=== PATIENT | female | born 1970 | race Caucasian/White ===

== ENCOUNTER 2016-11-10 06:24 | Emergency (ER) | payer BC ==
[~2016-11-10] VITALS: Ht 157.5 cm; Wt 53.2 kg
[~2016-11-10 06:24] MED LIST: ACETTAB3 OR; ADDERALL5 MG PO; AMOXICILLIN/CL875 MG PO; AUGMENTIN875TAB PO; AZITHROMYCIN250 MG PO; CEPHALEXIN500 MG PO; CLONAZEP ODT1 MG; DIFLUCAN150 MG PO; FLONASE NASAL50 MCG; FLONASE SPRAY50 MCG; IMITREX50 M1 PO; LEVOTHYROXIN100 MC1 PO; LEVOTHYROXIN100 MCG PO; MEDDOSEPAK OR; MEDDOSEPAK PO; NAPROSYN500 MG OR; VALACYCLOVIR H500 MG PO; VALACYCLOVIR1 GM OR; ZOLOFT100 MG PO; [UNRECOGNIZED DRUG - OTHER] EX
[2016-11-10] MEDS ORDERED: TESSALON PER100 MG PO (07:03)
[2016-11-10] MEDS ORDERED: ZITHROMAX250 MG PO (07:03)
[2016-11-10] MEDS ORDERED: PREDNISONE50 MG PO (07:03)
[2016-11-10 07:07] VITALS: BP 102/75
== END 2016-11-10 07:11 | disposition home or self-care (01) | DRG 203 ==
LOC: ED 06:24
DX: J20.9 Acute bronchitis, unspecified (principal); F32.9 Major depressive disorder, single episode, unspecified; F41.9 Anxiety disorder, unspecified

== ENCOUNTER 2017-05-07 08:44 | Emergency (ER) | payer BC ==
[~2017-05-07] VITALS: Ht 157.5 cm; Wt 52.0 kg
[~2017-05-07 08:44] MED LIST changes: +PREDNISONE50 MG PO; +TESSALON PER100 MG PO; +ZITHROMAX250 MG PO
[2017-05-07 10:27] LABS: ALBUMIN 4.7 g/dL (3.2-5.0); ALKALINE PHOSPHATASE 68 u/l (38-126); ANION GAP 16 (6-22 (CALC)); BILIRUBIN, TOTAL 0.5 mg/dL (0.0-1.4); BUN 10 mg/dL (7-17); BUN/CREATININE RATIO 14 (12-20 (CALC)); CARBON DIOXIDE 26 mmol/l (22-30); CHLORIDE 103 mmol/l (95-108); CREATININE 0.7 mg/dL (0.5-1.0); GFR > 60 ML/MIN (>=60 (CALC)); GFR FOR AFR.AMER. > 60 ML/MIN (>=60 (CALC)); POTASSIUM 4.6 mmol/l (3.5-5.1); SGOT/AST 25 u/l (14-36); SGPT/ALT 32 u/l (9-52); SODIUM 140 mmol/l (137-146); TOTAL PROTEIN 7.5 g/dL (6.3-8.2)
[2017-05-07 10:28] LABS: HEMATOCRIT 45.9 % (37.0-47.0); HEMOGLOBIN 14.6 g/dl (12.0-16.0); IMMATURE GRANULOCYTES 0.2 % (0.0-1.0); MEAN CELL VOLUME 100.9 fL CALC (80.0-100.0); MEAN CORPUSCULAR HGB 32.1 pG CALC (26.0-32.0); MEAN CORPUSCULAR HGB CONC 31.8 g/L CALC (32.0-36.0); NEUT# 6.88 thou/uL (2.00-7.15); RED BLOOD COUNT 4.55 mill/uL (4.20-5.60); RED CELL DISTRI WIDTH 13.6 % (11.5-15.5)
[2017-05-07 10:34] LABS: URINE BILIRUBIN - DIPSTICK NEGATIVE (NEGATIVE); URINE BLOOD DIPSTICK LARGE (NEGATIVE); URINE COLOR YELLOW; URINE GLUCOSE - DIPSTICK NEGATIVE (NEGATIVE); URINE KETONE NEGATIVE (NEGATIVE); URINE NITRITE - DIPSTICK NEGATIVE (Negative); URINE PROTEIN - DIPSTICK 30 mg/dL (NEG-TRACE); URINE UROBILINOGEN - DIPSTICK 0.2 E.U./dL (0.2)
[2017-05-07 10:49] LABS: URINE CLARITY CLOUDY; URINE LEUK ESTERASE LARGE (NEGATIVE)
[2017-05-07 10:50] LABS: URINE BACTERIA MODERATE hpf; URINE EPITHELIAL CELLS MODERATE EPI/hpf (0-FEW); URINE RBC 25-50 RBC/hpf (0-5); URINE WBC 20-50 WBC/hpf (0-5)
[2017-05-07] MEDS ORDERED: CEPHALEXIN500 M1 PO (11:07)
[2017-05-07] MEDS ORDERED: TAMSULOSIN0.4 MG PO (11:07)
[2017-05-07 11:14] VITALS: BP 92/60
== END 2017-05-07 11:30 | disposition home or self-care (01) | DRG 690 ==
LOC: ED 08:44
PROVIDERS: Family Medicine
DX: N39.0 Urinary tract infection, site not specified (principal); R31.9 Hematuria, unspecified; E06.3 Autoimmune thyroiditis; R10.32 Left lower quadrant pain

== ENCOUNTER 2017-06-04 10:39 | Emergency (ER) | payer BC ==
[~2017-06-04] VITALS: Ht 157.5 cm; Wt 55.0 kg
[~2017-06-04 10:39] MED LIST changes: +CEPHALEXIN500 M1 PO; +TAMSULOSIN0.4 MG PO
[2017-06-04 12:02] LABS: URINE BILIRUBIN - DIPSTICK NEGATIVE (NEGATIVE); URINE BLOOD DIPSTICK NEGATIVE (NEGATIVE); URINE CLARITY CLEAR; URINE COLOR YELLOW; URINE GLUCOSE - DIPSTICK NEGATIVE (NEGATIVE); URINE KETONE NEGATIVE (NEGATIVE); URINE LEUK ESTERASE NEGATIVE (NEGATIVE); URINE NITRITE - DIPSTICK NEGATIVE (Negative); URINE PROTEIN - DIPSTICK NEGATIVE (NEG-TRACE); URINE SPECIFIC GRAVITY <=1.005; URINE UROBILINOGEN - DIPSTICK 0.2 E.U./dL (0.2)
[2017-06-04 13:19] LABS: HEMOGLOBIN 13.2 g/dl (12.0-16.0); IMMATURE GRANULOCYTES 0.2 % (0.0-1.0); MEAN CELL VOLUME 96.1 fL CALC (80.0-100.0); MEAN CORPUSCULAR HGB 32.2 pG CALC (26.0-32.0); MEAN CORPUSCULAR HGB CONC 33.5 g/L CALC (32.0-36.0); NEUT# 2.09 thou/uL (2.00-7.15); RED BLOOD COUNT 4.1 mill/uL (4.20-5.60); RED CELL DISTRI WIDTH 13.4 % (11.5-15.5)
[2017-06-04 13:37] LABS: ANION GAP 15 (6-22 (CALC)); BUN 15 mg/dL (7-17); BUN/CREATININE RATIO 20 (12-20 (CALC)); CARBON DIOXIDE 26 mmol/l (22-30); CHLORIDE 105 mmol/l (95-108); CREATININE 0.7 mg/dL (0.5-1.0); GFR > 60 ML/MIN (>=60 (CALC)); GFR FOR AFR.AMER. > 60 ML/MIN (>=60 (CALC)); POTASSIUM 4.6 mmol/l (3.5-5.1); SODIUM 142 mmol/l (137-146)
[2017-06-04 13:38] LABS: HEMATOCRIT 39.4 % (37.0-47.0)
[2017-06-04 15:24] VITALS: BP 103/66
== END 2017-06-04 15:24 | disposition home or self-care (01) | DRG 392 ==
LOC: ED 10:39
PROVIDERS: Family Medicine
DX: R10.2 Pelvic and perineal pain (principal); E03.9 Hypothyroidism, unspecified; F41.9 Anxiety disorder, unspecified
CPT/HCPCS: Q9967

== ENCOUNTER 2017-10-24 11:06 | Emergency (ER) | payer BC ==
[~2017-10-24] VITALS: Ht 157.5 cm; Wt 58.0 kg
[~2017-10-24 11:06] MED LIST changes: -CLONAZEP ODT1 MG; +CLONAZEP ODT1 MG PO
[2017-10-24] MEDS ORDERED: LEVAQUIN750 MG PO (11:32)
[2017-10-24] MEDS ORDERED: IMITREX25 MG PO (11:32)
[2017-10-24] MEDS ORDERED: ZOFRAN4 MG/TAB PO (11:33)
[2017-10-24] MEDS ORDERED: FLONASE AL50 MCG/ACT (12:05)
[2017-10-24 12:31] VITALS: BP 116/70
[2017-10-24] MEDS ORDERED: DIFLUCAN150 MG PO (12:38)
== END 2017-10-24 12:35 | disposition home or self-care (01) | DRG 103 ==
LOC: ED 11:06
DX: R51 Headache (principal); J01.10 Acute frontal sinusitis, unspecified; R09.81 Nasal congestion

== ENCOUNTER 2017-12-13 08:50 | Emergency (ER) | payer BC ==
[~2017-12-13] VITALS: Ht 157.5 cm; Wt 54.5 kg
[~2017-12-13 08:50] MED LIST changes: +FLONASE AL50 MCG/ACT; +IMITREX25 MG PO; +LEVAQUIN750 MG PO; +ZOFRAN4 MG/TAB PO
[2017-12-13 09:30] LABS: INFLUENZA A NONE DETECTED (NONE DETECT); INFLUENZA B NONE DETECTED (NONE DETECT)
[2017-12-13] MEDS ORDERED: CLARITIN10 M1 PO (09:40)
[2017-12-13] MEDS ORDERED: FLONASE AL50 MCG/ACT (09:40)
[2017-12-13] MEDS ORDERED: AMOXICILLIN500 MG PO (09:40)
[2017-12-13 10:00] VITALS: BP 95/63
== END 2017-12-13 10:08 | disposition home or self-care (01) | DRG 153 ==
LOC: ED 08:50
PROVIDERS: Emergency Medicine
DX: J02.9 Acute pharyngitis, unspecified (principal); E03.9 Hypothyroidism, unspecified; F41.9 Anxiety disorder, unspecified

== ENCOUNTER 2018-03-14 00:57 | Emergency (ER) | payer BC ==
[~2018-03-14] VITALS: Ht 157.5 cm; Wt 54.5 kg
[~2018-03-14 00:57] MED LIST changes: +AMOXICILLIN500 MG PO; +CLARITIN10 M1 PO
[2018-03-14] MEDS ORDERED: ACYCLOVIR400 MG PO (01:05)
[2018-03-14 01:42] LABS: HEMATOCRIT 41.6 % (37.0-47.0); HEMOGLOBIN 13.9 g/dl (12.0-16.0); IMMATURE GRANULOCYTES 0.2 % (0.0-5.0); MEAN CELL VOLUME 96.3 fL CALC (80.0-100.0); MEAN CORPUSCULAR HGB 32.2 pG CALC (26.0-32.0); MEAN CORPUSCULAR HGB CONC 33.4 g/L CALC (32.0-36.0); NEUT# 2.34 thou/uL (2.00-7.15); RED BLOOD COUNT 4.32 mill/uL (4.20-5.60); RED CELL DISTRI WIDTH 13.2 % (11.5-15.5)
[2018-03-14 01:59] LABS: ALBUMIN 4.1 g/dL (3.2-5.0); ALKALINE PHOSPHATASE 48 u/l (38-126); ANION GAP 15 (6-22 (CALC)); BILIRUBIN, TOTAL 0.4 mg/dL (0.0-1.4); BUN 15 mg/dL (7-17); BUN/CREATININE RATIO 24 (12-20 (CALC)); CARBON DIOXIDE 28 mmol/l (22-30); CHLORIDE 101 mmol/l (95-108); CREATININE 0.7 mg/dL (0.5-1.0); GFR > 60 ML/MIN (>=60 (CALC)); GFR FOR AFR.AMER. > 60 ML/MIN (>=60 (CALC)); POTASSIUM 4.4 mmol/l (3.5-5.1); SGOT/AST 23 u/l (14-36); SODIUM 139 mmol/l (137-146); TOTAL PROTEIN 7.2 g/dL (6.3-8.2)
[2018-03-14 02:42] LABS: URINE BILIRUBIN - DIPSTICK NEGATIVE (NEGATIVE); URINE BLOOD DIPSTICK NEGATIVE (NEGATIVE); URINE COLOR YELLOW; URINE GLUCOSE - DIPSTICK NEGATIVE (NEGATIVE); URINE KETONE NEGATIVE (NEGATIVE); URINE LEUK ESTERASE NEGATIVE (NEGATIVE); URINE NITRITE - DIPSTICK NEGATIVE (Negative); URINE PROTEIN - DIPSTICK NEGATIVE (NEG-TRACE); URINE UROBILINOGEN - DIPSTICK 0.2 E.U./dL (0.2)
[2018-03-14 02:45] LABS: URINE CLARITY SL CLOUDY
[2018-03-14] MEDS ORDERED: ZOFRAN ODT8 MG PO (03:28)
[2018-03-14 04:00] VITALS: BP 107/74
== END 2018-03-14 04:00 | disposition home or self-care (01) | DRG 392 ==
LOC: ED 00:57
PROVIDERS: Family Medicine
DX: K52.9 Noninfective gastroenteritis and colitis, unspecified (principal); E03.9 Hypothyroidism, unspecified; F41.9 Anxiety disorder, unspecified

== ENCOUNTER 2018-03-28 10:23 | Emergency (ER) | payer BC ==
[~2018-03-28] VITALS: Ht 157.5 cm; Wt 52.3 kg
[~2018-03-28 10:23] MED LIST changes: +ACYCLOVIR400 MG PO; +ZOFRAN ODT8 MG PO
[2018-03-28 11:58] LABS: HEMATOCRIT 41.3 % (37.0-47.0); HEMOGLOBIN 13.9 g/dl (12.0-16.0); IMMATURE GRANULOCYTES 0.2 % (0.0-5.0); MEAN CELL VOLUME 95.6 fL CALC (80.0-100.0); MEAN CORPUSCULAR HGB 32.2 pG CALC (26.0-32.0); MEAN CORPUSCULAR HGB CONC 33.7 g/L CALC (32.0-36.0); NEUT# 2.46 thou/uL (2.00-7.15); RED BLOOD COUNT 4.32 mill/uL (4.20-5.60); RED CELL DISTRI WIDTH 12.8 % (11.5-15.5)
[2018-03-28 12:07] LABS: ALBUMIN 4.2 g/dL (3.2-5.0); ALKALINE PHOSPHATASE 55 u/l (38-126); ANION GAP 15 (6-22 (CALC)); BILIRUBIN, TOTAL 0.4 mg/dL (0.0-1.4); BUN 12 mg/dL (7-17); BUN/CREATININE RATIO 20 (12-20 (CALC)); CARBON DIOXIDE 25 mmol/l (22-30); CHLORIDE 105 mmol/l (95-108); CREATININE 0.6 mg/dL (0.5-1.0); GFR > 60 ML/MIN (>=60 (CALC)); GFR FOR AFR.AMER. > 60 ML/MIN (>=60 (CALC)); POTASSIUM 4.6 mmol/l (3.5-5.1); SGOT/AST 24 u/l (14-36); SODIUM 139 mmol/l (137-146); TOTAL PROTEIN 7.4 g/dL (6.3-8.2)
[2018-03-28 12:08] LABS: URINE BILIRUBIN - DIPSTICK NEGATIVE (NEGATIVE); URINE BLOOD DIPSTICK NEGATIVE (NEGATIVE); URINE COLOR YELLOW; URINE GLUCOSE - DIPSTICK NEGATIVE (NEGATIVE); URINE KETONE NEGATIVE (NEGATIVE); URINE LEUK ESTERASE NEGATIVE (NEGATIVE); URINE NITRITE - DIPSTICK NEGATIVE (Negative); URINE PROTEIN - DIPSTICK NEGATIVE (NEG-TRACE); URINE SPECIFIC GRAVITY <=1.005; URINE UROBILINOGEN - DIPSTICK 0.2 E.U./dL (0.2)
[2018-03-28 12:31] LABS: BARBITURATES NEGATIVE (NEGATIVE); COCAINE NEGATIVE (NEGATIVE); METHADONE NEGATIVE (NEGATIVE); OXCYCODONE NEGATIVE (NEGATIVE); TETRAHYDROCANNABIONOL NEGATIVE (NEGATIVE); TRICYLIC ANTIDEPRESSANTS NEGATIVE (NEGATIVE)
[2018-03-28] MEDS ORDERED: BENTYL10 MG PO (13:27)
[2018-03-28] MEDS ORDERED: ONDANSETRON4 MG PO (13:27)
[2018-03-28] MEDS ORDERED: IMITREX25 MG PO (13:27)
[2018-03-28 13:40] VITALS: BP 109/74
== END 2018-03-28 13:45 | disposition home or self-care (01) | DRG 103 ==
LOC: ED 10:23
PROVIDERS: Emergency Medicine
DX: R51 Headache (principal); R11.2 Nausea with vomiting, unspecified; R19.7 Diarrhea, unspecified

== ENCOUNTER 2019-01-16 19:56 | Emergency (ER) | payer BC ==
[~2019-01-16] VITALS: Ht 157.5 cm; Wt 48.6 kg
[~2019-01-16 19:56] MED LIST changes: +BENTYL10 MG PO; +ONDANSETRON4 MG PO
[2019-01-16] MEDS ORDERED: TRAZODONE50 MG PO (20:17)
[2019-01-16 20:35] VITALS: BP 111/67
[2019-01-16 20:54] LABS: HEMATOCRIT 43.4 % (37.0-47.0); HEMOGLOBIN 14.5 g/dl (12.0-16.0); IMMATURE GRANULOCYTES 0.2 % (0.0-5.0); MEAN CELL VOLUME 93.7 fL CALC (80.0-100.0); MEAN CORPUSCULAR HGB 31.3 pG CALC (26.0-32.0); MEAN CORPUSCULAR HGB CONC 33.4 g/L CALC (32.0-36.0); NEUT# 3.3 thou/uL (2.00-7.15); RED BLOOD COUNT 4.63 mill/uL (4.20-5.60); RED CELL DISTRI WIDTH 13.3 % (11.5-15.5)
[2019-01-16 20:56] LABS: URINE BILIRUBIN - DIPSTICK NEGATIVE (NEGATIVE); URINE BLOOD DIPSTICK NEGATIVE (NEGATIVE); URINE COLOR YELLOW; URINE GLUCOSE - DIPSTICK NEGATIVE (NEGATIVE); URINE KETONE NEGATIVE (NEGATIVE); URINE LEUK ESTERASE NEGATIVE (NEGATIVE); URINE NITRITE - DIPSTICK NEGATIVE (Negative); URINE PROTEIN - DIPSTICK NEGATIVE (NEG-TRACE); URINE UROBILINOGEN - DIPSTICK 0.2 E.U./dL (0.2)
[2019-01-16 21:13] LABS: ALBUMIN 4.5 g/dL (3.2-5.0); ALKALINE PHOSPHATASE 56 u/l (38-126); ANION GAP 11 (6-22 (CALC)); BUN 19 mg/dL (7-17); BUN/CREATININE RATIO 21 (12-20 (CALC)); CARBON DIOXIDE 28 mmol/l (22-30); CHLORIDE 102 mmol/l (95-108); CPK 33 u/l (30-165); CREATININE 0.9 mg/dL (0.5-1.0); GFR > 60 ML/MIN (>=60 (CALC)); GFR FOR AFR.AMER. > 60 ML/MIN (>=60 (CALC)); MAGNESIUM 2.2 mg/dL (1.6-2.3); POTASSIUM 3.9 mmol/l (3.5-5.1); SGOT/AST 25 u/l (14-36); SODIUM 138 mmol/l (137-146); TOTAL PROTEIN 7.6 g/dL (6.3-8.2)
[2019-01-16 21:15] LABS: BILIRUBIN, TOTAL 0.2 mg/dL (0.0-1.4)
[2019-01-16 21:21] LABS: MYOGLOBIN 29 ng/mL (0 - 62)
[2019-01-16 21:43] LABS: TSH, 3RD GENERATION 1.45 uIU/mL (0.47 - 4.68)
== END 2019-01-16 22:05 | disposition home or self-care (01) | DRG 880 ==
LOC: ED 19:56
PROVIDERS: Family Medicine
DX: F41.9 Anxiety disorder, unspecified (principal); R53.83 Other fatigue; E03.9 Hypothyroidism, unspecified

== ENCOUNTER 2019-07-18 | Emergency (ER) | payer OTHER ==
[~2019-07-18] MED LIST changes: +TRAZODONE50 MG PO
[2019-07-18 11:10] LABS: HEMATOCRIT 41.7 % (37.0-47.0); HEMOGLOBIN 13.7 g/dl (12.0-16.0); IMMATURE GRANULOCYTES 0.4 % (0.0-5.0); MEAN CELL VOLUME 93.7 fL CALC (80.0-100.0); MEAN CORPUSCULAR HGB 30.8 pG CALC (26.0-32.0); MEAN CORPUSCULAR HGB CONC 32.9 g/dL CAL (32.0-36.0); NEUT# 3.02 thou/uL (2.00-7.15); RED BLOOD COUNT 4.45 mill/uL (4.20-5.60); RED CELL DISTRI WIDTH 13.7 % (11.5-15.5)
[2019-07-18 11:32] LABS: ALBUMIN 4.6 g/dL (3.2-5.0); ALKALINE PHOSPHATASE 58 u/l (38-126); ANION GAP 13 (6-22 (CALC)); BILIRUBIN, TOTAL 0.7 mg/dL (0.0-1.4); BUN 12 mg/dL (7-17); BUN/CREATININE RATIO 17 (12-20 (CALC)); CARBON DIOXIDE 27 mmol/l (22-30); CHLORIDE 104 mmol/l (95-108); CREATININE 0.7 mg/dL (0.5-1.0); GFR > 60 ML/MIN (>=60 (CALC)); GFR FOR AFR.AMER. > 60 ML/MIN (>=60 (CALC)); LIPASE 69 u/l (23-300); POTASSIUM 3.8 mmol/l (3.5-5.1); SGOT/AST 22 u/l (14-36); SODIUM 141 mmol/l (137-146)
[2019-08-10] MEDS ORDERED: FLONASE AL50 MCG/ACT (07:48)
[2019-08-10] MEDS ORDERED: IBUPROFEN200 MG PO (07:49)
[2019-08-10] MEDS ORDERED: MEDICAL MARIJUANA (07:49)
[2019-08-10] MEDS ORDERED: LEVOTHYROXIN100 MCG PO (07:50)
== END 2019-07-18 12:57 | disposition home or self-care (01) ==
PROVIDERS: Family Medicine
DX: R63.4 Abnormal weight loss (principal); R10.9 Unspecified abdominal pain; R53.1 Weakness
CPT/HCPCS: Q9967

== ENCOUNTER 2019-08-14 | Day surgery (SDC) | payer OTHER ==
[~2019-08-14] MED LIST changes: +IBUPROFEN200 MG PO; +MEDICAL MARIJUANA
[2019-08-14 07:22] LABS: BARBITURATES NEGATIVE (NEGATIVE); COCAINE NEGATIVE (NEGATIVE); METHADONE NEGATIVE (NEGATIVE); OXCYCODONE NEGATIVE (NEGATIVE); TETRAHYDROCANNABIONOL POSITIVE (NEGATIVE); TRICYLIC ANTIDEPRESSANTS NEGATIVE (NEGATIVE)
== END 2019-08-14 09:28 | disposition home or self-care (01) ==
PROVIDERS: Surgery
DX: R63.4 Abnormal weight loss (principal); K64.8 Other hemorrhoids; Z86.010 Personal history of colon polyps; Z80.0 Family history of malignant neoplasm of digestive organs; Z11.59 Encounter for screening for other viral diseases

== ENCOUNTER 2021-04-02 07:52 | Emergency (ER) | payer OTHER ==
[~2021-04-02] VITALS: Ht 157.5 cm; Wt 54.5 kg
[2021-04-02 08:47] LABS: HEMATOCRIT 40.9 % (37.0-47.0); IMMATURE GRANULOCYTES 0.3 % (0.0-5.0); MEAN CORPUSCULAR HGB 30.5 pG CALC (26.0-32.0); MEAN CORPUSCULAR HGB CONC 31.8 g/dL CAL (32.0-36.0); NEUT# 2.79 thou/uL (2.00-7.15); RED BLOOD COUNT 4.26 mill/uL (4.20-5.60); RED CELL DISTRI WIDTH 13.3 % (11.5-15.5)
[2021-04-02 08:53] LABS: ALBUMIN 3.9 g/dL (3.2-5.0); ALKALINE PHOSPHATASE 55 u/l (38-126); ANION GAP 10 (6-22 (CALC)); BUN 10 mg/dL (7-17); BUN/CREATININE RATIO 14 (12-20 (CALC)); CARBON DIOXIDE 26 mmol/l (22-30); CHLORIDE 104 mmol/l (95-108); CREATININE 0.7 mg/dL (0.5-1.0); GFR > 60 ML/MIN (>=60 (CALC)); GFR FOR AFR.AMER. > 60 ML/MIN (>=60 (CALC)); SGOT/AST 27 u/l (14-36); SODIUM 136 mmol/l (137-146); TOTAL PROTEIN 7.3 g/dL (6.3-8.2)
[2021-04-02 09:05] LABS: BILIRUBIN, TOTAL 0.5 mg/dL (0.0-1.4)
[2021-04-02 10:25] VITALS: BP 100/56
[2021-04-02] MEDS ORDERED: ZPAK PO (10:25)
[2021-04-02] MEDS ORDERED: CODEINE/GUAIFEN1 SOL PO (10:25)
[2021-04-02] MEDS ORDERED: DECADRON2 MG PO (10:25)
== END 2021-04-02 10:25 | disposition home or self-care (01) ==
LOC: ED 07:52
DX: U07.1 COVID-19 (principal); J40 Bronchitis, not specified as acute or chronic

== ENCOUNTER 2022-04-05 14:27 | Emergency (ER) | payer OTHER ==
[2022-04-05] VITALS (9 sets, daily range): BP systolic 97–113; BP diastolic 54–72
[~2022-04-05] VITALS: Ht 157.5 cm; Wt 54.5 kg
[~2022-04-05 14:27] MED LIST changes: +CODEINE/GUAIFEN1 SOL PO; +DECADRON2 MG PO; +ZPAK PO
[2022-04-05 15:46] LABS: BASO% 0.1 % (0-3); EOS% 0.4 % (0-8); HEMATOCRIT 37.6 % (37.0-47.0); HEMOGLOBIN 12.5 g/dl (12.0-16.0); IMMATURE GRANULOCYTES 0.1 % (0.0-5.0); LYMPH% 11.5 % (15-41); MEAN CELL VOLUME 96.4 fL CALC (80.0-100.0); MEAN CORPUSCULAR HGB 32.1 pG CALC (26.0-32.0); MEAN CORPUSCULAR HGB CONC 33.2 g/dL CAL (32.0-36.0); MONO% 6.7 % (2-13); NEUT# 7.99 thou/uL (2.00-7.15); NEUT% 81.2 % (42-76); RED BLOOD COUNT 3.9 mill/uL (4.20-5.60); RED CELL DISTRI WIDTH 13.8 % (11.5-15.5)
[2022-04-05 15:58] LABS: ALBUMIN 4.1 g/dL (3.2-5.0); ALKALINE PHOSPHATASE 48 u/l (38-126); ANION GAP 8 (6-22 (CALC)); BILIRUBIN, TOTAL 0.4 mg/dL (0.0-1.4); BUN 7 mg/dL (7-17); BUN/CREATININE RATIO 12 (12-20 (CALC)); CARBON DIOXIDE 29 mmol/l (22-30); CHLORIDE 107 mmol/l (95-108); CREATININE 0.6 mg/dL (0.5-1.0); GFR FOR AFR.AMER. > 60 ML/MIN (>=60 (CALC)); GFR OTHER RACES > 60 ML/MIN (>=60 (CALC)); POTASSIUM 3.3 mmol/l (3.5-5.1); SGOT/AST 28 u/l (14-36); SODIUM 140 mmol/l (137-146); TOTAL PROTEIN 7.2 g/dL (6.3-8.2)
[2022-04-05] MEDS ORDERED: ZOFRAN4 MG/TAB PO ×2 (17:12→17:40)
[2022-04-05] MEDS ORDERED: AMOXICILLIN500 M2 PO ×2 (17:12→17:40)
== END 2022-04-05 17:47 | disposition home or self-care (01) ==
LOC: ED 14:27
PROVIDERS: Family Medicine
DX: J06.9 Acute upper respiratory infection, unspecified (principal); Z20.822 Contact with and (suspected) exposure to COVID-19